=== PATIENT | male | born 1955 | race Caucasian/White ===

== ENCOUNTER → 2016-09-25 | Outpatient (CLI) | payer MEDICAID ==
--- NOTE | 2016-09-25 13:55 | DX ---
PA and Lateral Chest Clinical Indications: Cough and left-sided chest pain x3 weeks, J06.9, J20.9, history of prior media stinal shotty adenopathy Comparison: June 2014, June 2012 and April 2011, chest CT January 29, 2014 Findings: Possible vague right upper lobe, suprahilar nodule. The heart and pulmonary vessels are no rmal. There are no adenopathy, pleural effusions and no pneumothorax. The bones are unremarkable fo r this age. Impression: 1. No source for left-sided chest pain identified. 2. Possible right upper lobe nodule. Recommendation: Consider followup noncontrast chest CT. Results called to Mary Mayorga at 1:53 pm
== END ==
LOC: FIMAGING 13:11
PROVIDERS: ATTEND Nurse Practitioner Family
DX: R05 Cough (principal); R07.89 Other chest pain; R91.8 Other nonspecific abnormal finding of lung field

== ENCOUNTER → 2016-10-03 | Outpatient (CLI) | payer MEDICAID ==
--- NOTE | 2016-10-03 17:25 | CT ---
CT Chest Without Contrast 1443 hours Indication: Possible pulmonary nodule on chest x-ray study versus lymphadenopathy (R 59.0, R 93.8). Technique: Spiral images were obtained through the chest. Images were reviewed in multiple planes . Dose reduction techniques were utilized. Comparison: Chest x-ray study from September 25, [address] study of January 29, 2014. Findings: Lung and large airways: No significant pulmonary nodules. There is focal scarring right upper lobe p osterior medially that probably accounts for the abnormality on prior chest x-ray study. This was ac tually present on the prior CT study from Jan, 2014 and is stable. Bronchi: No significant bronchial wall thickening Pleura: Normal. Vessels: The thoracic aorta has a normal contour. There is no aneurysm or dissection. Atherosclerotic calcification is noted involving the left main coronary artery and proximal LAD. Heart and pericardium: Normal. Mediastinum and yris: No mass or lymphadenopathy. Chest wall and lower neck: Normal. Limited upper abdomen: No significant abnormality. Skeletal system: Vertebral body heights are well-maintained. There are no lytic or sclerotic osseous lesions. Impression: 1. No significant pulmonary nodule. 2. Focal scarring right upper lobe posterior medially that probably accounts for the density on recen t chest x-ray study. 3. Arteriosclerotic calcification left main coronary artery and proximal LAD..
== END ==
LOC: FIMAGING 14:29
PROVIDERS: ATTEND Nurse Practitioner Family
DX: Z03.89 Encounter for observation for other suspected diseases and conditions ruled out (principal)

== ENCOUNTER 2018-03-03 11:52 | Emergency (ER) | payer MEDICAID ==
[2018-03-03 11:59] VITALS: BP 118/74
--- NOTE | 2018-03-03 12:59 | EDPHY ---
H & P Time Seen by Provider: 03/03/18 12:42 HPI/ROS: CHIEF COMPLAINT: Worsening left eye pain HISTORY OF PRESENT ILLNESS: Patient cataract surgery [address] Eric Meeks and saw him in the office on Sunday this last week because of continued bilateral eye pain. He was told that he was recovering appropriately. He over the past 24 hr developed worsening pain especially in his left eye with some decrease in vision. No foreign body sensation and no new trauma. No fever or chills and no drainage. REVIEW OF SYSTEMS: As above, felt his left eye was starting to get "bloody" PAST MEDICAL HISTORY: Cataract surgery and high cholesterol General Appearance: Alert, no distress. Visual acuity: noted from nursing notes. 20/20 in the right and 20/50 in the left Lids and Lashes: No edema, no stye, no erythema. Conjunctivae: Slightly injected but no exudate. Sclera: No subconjunctival hemorrhage, no icterus. Slight redness in the left sclera. Pupils: Equal and round, normally reactive. Corneas: No foreign body on surface of cornea. No chemosis seen. Anterior chamber: normal, no hyphema or hypopyon. External: No proptosis, no periorbital swelling or redness or tenderness. EOMI. 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 Meeks [id number]: he saw the patient 2 days ago, recommends that I start him on Pred-forte eye drops 4x/day in the left eye, will see patient tomorrow in the office at 930am tomorrow. Differential considered including but not limited to endophthalmitis, glaucoma, conjunctivitis, foreign body. Smoking Status: Never smoked Constitutional: Initial Vital Signs Temperature (C) 36.9 C 03/03/18 11:56 Heart Rate 78 03/03/18 11:56 Respiratory Rate 16 03/03/18 11:56 Blood Pressure 118/74 03/03/18 11:56 O2 Sat (%) 98 03/03/18 11:56 O2 Delivery Mode Room Air Allergies/Adverse Reactions: No Known Allergies Allergy (Unverified 08/23/12 19:40) Home Medications: Medication Instructions Recorded Rosuvastatin Calcium [Crestor 5mg] 5 mg PO DAILY 08/23/12 Lunesta 03/03/18 Moxifloxacin 03/03/18 prednisoLONE ACET 1% [Pred Forte 1 drops Q6 #1 bottle 03/03/18 1% (*)] MDM/Departure - Depart Disposition: Home, Routine, Self-Care Clinical Impression: Left eye pain Condition: Good Instructions: Eye Pain (ED) Prescriptions: prednisoLONE ACET 1% [Pred Forte 1% (*)] 1 drops Q6 #1 bottle Referrals: Aj Carlson MD [Primary Care Provider] - As per Instructions Eric Meeks MD [Medical Doctor] - 03/04/18 9:30 am
== END 2018-03-03 13:43 | disposition home or self-care (01) ==
DX: H57.12 Ocular pain, left eye (principal)

== ENCOUNTER → 2018-05-10 | Outpatient (CLI) | payer MEDICAID ==
[~2018-05-10] MED LIST: GADOBUTROL 10 ML VIAL IVP ONE
== END ==
LOC: FIMAGING 07:06
PROVIDERS: ATTEND Psychiatry & Neurology Neurology
DX: R51 Headache (principal)
CPT/HCPCS: A9585

== ENCOUNTER → 2018-11-07 | Outpatient (CLI) | payer MEDICAID | LOC: FIMAGING 10:04 | DX: E23.7 Disorder of pituitary gland, unspecified (principal) | CPT/HCPCS: A9585 ==

== ENCOUNTER → 2019-01-13 | Outpatient (CLI) | payer MEDICAID ==
[~2019-01-13] MED LIST changes: -GADOBUTROL 10 ML VIAL IVP ONE; +LIDOCAINE 1% 300 MG/30 ML SDV ONE
[2019-01-13 09:29] LABS: PROTIME(PATIENT) 12.8 SEC (12.0-15.0)
== END ==
LOC: FIMAGING 08:28
PROVIDERS: ATTEND Physician Assistant Medical
PROC: 009U3ZX Drainage of Spinal Canal, Percutaneous Approach, Diagnostic (ICD-10-PCS; principal; 2019-01-13)
DX: G43.909 Migraine, unspecified, not intractable, without status migrainosus (principal)